=== PATIENT | female | born 1985 | race African-American/Black ===

== ENCOUNTER 2020-07-25 09:47 | Emergency (ER) | payer SELFPAY ==
--- NOTE | ~2020-07-25 | CT_ITS ---
EXAMINATION: CT cervical spine wo con DATE: 07/25/2020 12:32 INDICATION: Left neck and shoulder pain. TECHNIQUE: Computed tomography (CT) of the cervical spine was performed without intravenous contrast. Automated exposure control and iterative reconstruction technique were employed. The dose-length pro duct was 372.11 mGy-cm. COMPARISON: CT neck 04/14/2014 FINDINGS: There is kyphosis and 5 degrees dextrocurvature of cervical spine. Vertebral body heights a re normal. There is mildly decreased disc height at C4-C5. The following disc levels are specifically discussed: C2-C3: There is no uncovertebral joint osteoarthritis. There is mild left facet joint osteoarthritis. There is no neural foraminal stenosis. There is no central canal stenosis. C3-C4: There is no uncovertebral joint osteoarthritis. There is mild bilateral facet joint osteoarthr itis. There is no neural foraminal stenosis. There is no central canal stenosis. C4-C5: There is no uncovertebral joint osteoarthritis. There is no facet joint osteoarthritis. There is no neural foraminal stenosis. There is mild central canal stenosis. C5-C6: There is no uncovertebral joint osteoarthritis. There is no facet joint osteoarthritis. There is no neural foraminal stenosis. There is mild central canal stenosis. C6-C7: There is no uncovertebral joint osteoarthritis. There is no facet joint osteoarthritis. There is no neural foraminal stenosis. There is no central canal stenosis. C7-T1: There is no uncovertebral joint osteoarthritis. There is mild bilateral facet joint osteoarthr itis. There is no neural foraminal stenosis. There is no central canal stenosis. IMPRESSION: 1. Mild cervical spondylosis. Reviewed, dictated and finalized at location A.
[2020-07-25 11:01] VITALS: BP 124/77; PULSE 88; RESP 20; TEMP 36.4; O2SAT 98
[2020-07-25] MEDS: KETOROLAC (*BKC) 60 MG/2 ML VIAL IM (12:26)
--- NOTE | 2020-07-25 13:13 | ED.GENADULT ---
HPI - General Adult General Chief complaint: Extremity Injury, Upper Stated complaint: left arm injury Time Seen by Provider: 07/25/20 11:51 Source: patient Mode of arrival: ambulatory Limitations: no limitations History of Present Illness HPI narrative: Patient is a 35-year-old female who presents to emergency department for evaluation of left-sided neck pain radiating to the shoulder and into the arm has been present now for several weeks has seen chiropractor with no relief presents in no distress has been taken ibuprofen with minimal improvement notes that the pain in the neck is now improved but is more around the rotator cuff musculature at this time and is made worse with lifting the shoulder above the level of the shoulder Related Data Allergies Allergy/AdvReac Type Severity Reaction Status Date / Time No Known Allergies Allergy Verified 07/25/20 11:44 Review of Systems Review of Systems: All systems reviewed & are unremarkable except as noted in HPI and below PMFSH Social History Social History (Updated 07/25/20 @ 13:19 by Carlos Alberto Collazo PA-C) Smoking status: Current every day smoker Exam Narrative: Exam Narrative: GENERAL: Well-appearing, well-nourished, and in no acute distress. HEAD: Normocephalic, atraumatic. EYES: PERRLA and EOMI. ENT: Nares clear, no rhinorrhea or epistaxis. Mucous membranes moist. NECK: Supple. No adenopathy or masses. CHEST: Clear to auscultation. No respiratory distress. No wheezes rales or rhonchi HEART: Regular rate and rhythm. No murmur heard. Normal peripheral pulses. EXTREMITIES: Normal range of motion. No edema. Tenderness of the left paraspinal cervical musculature and rotator cuff musculature no deformities noted SKIN: Warm, dry, no rash. NEURO: No focal deficits. Alert and oriented x3. Neurovascularly intact. Capillary refill less than 2 seconds PSYCH: Normal mood and affect. Course Course Emergency Course: Patient in the room at this time aware of case findings treatment plan and diagnosis will follow with primary care and orthopedic surgery Vital Signs Vital signs: Vital Signs Temperature 97.6 F 07/25/20 11:01 Pulse Rate 88 07/25/20 11:01 Respiratory Rate 20 07/25/20 11:01 Blood Pressure 124/77 07/25/20 11:01 Pulse Oximetry 98 07/25/20 11:01 Temperature 97.6 F 07/25/20 11:01 Pulse Rate 88 07/25/20 11:01 Respiratory Rate 20 07/25/20 11:01 Blood Pressure 124/77 07/25/20 11:01 Pulse Oximetry 98 07/25/20 11:01 Medical Decision Making MDM Narrative Medical decision making narrative: Patients injury or pain is consistent with musculoskeletal etiology. No signs of neurological or vascular compromise on exam. Compartments and tisues are soft without signs of compartment syndrome. Pain is felt appropriate for further evaluation on an outpatient basis. Vital Signs Vital Signs: Vital Signs Temperature 97.6 F 07/25/20 11:01 Pulse Rate 88 07/25/20 11:01 Respiratory Rate 20 07/25/20 11:01 Blood Pressure 124/77 07/25/20 11:01 Pulse Oximetry 98 07/25/20 11:01 Temperature 97.6 F 07/25/20 11:01 Pulse Rate 88 07/25/20 11:01 Respiratory Rate 20 07/25/20 11:01 Blood Pressure 124/77 07/25/20 11:01 Pulse Oximetry 98 07/25/20 11:01 Discharge Plan Discharge Clinical Impression: Cervical radiculopathy Patient Disposition: Home, Self-Care Condition: Stable Instructions: Antibiotic Form, Cervical Radiculopathy (ED) Additional Instructions: Follow up with your primary care doctor in 5-7 days for re-evaluation. Go to ER for worsening pain, vision changes, nausea/vomiting, fever/chills, weakness, chest pain, shortness of breath, numbness/tingling, slurred speech, difficulty walking, change in mental status etc. or any other concerns. Take any prescribed medications as directed. Prescriptions: New naproxen [Naprosyn] 500 mg tablet 500 mg PO BID PRN (Reason: pain) Qty:
[2020-07-25 13:29] VITALS: BP 120/63; PULSE 66; RESP 17; O2SAT 100
== END 2020-07-25 13:34 | disposition home or self-care (01) ==
PROVIDERS: Emergency Provider Emergency Medicine
DX: M54.12 Radiculopathy, cervical region (principal); F17.200 Nicotine dependence, unspecified, uncomplicated
CPT/HCPCS: 72125; 96372; 99284; J1885

== ENCOUNTER 2023-06-29 02:09 | Emergency (ER) | payer BC, SELFPAY ==
[2023-06-29 02:15] VITALS: BP 142/79; PULSE 98; RESP 15; TEMP 36.3; O2SAT 100
[2023-06-29 02:37] LABS: Basophils Absolute Auto 0.1 K/mm3 (0.0-0.1); Basophils Percent Auto 1.1 % (0.2-1.2); Eosinophils Absolute Auto 0.1 K/mm3 (0-0.3); Eosinophils Percent Auto 1.1 % (0-4.4); Hematocrit 27.2 % (37.0-47.0); Hemoglobin 7.6 g/dL (12.0-15.0); Immature Granulocyte Absolute 0.03 K/mm3 (0.00-0.031); Immature Granulocyte Percent A 0.3 % (0-0.5); Lymphocytes Absolute Auto 4.47 K/mm3 (0.9-3.2); Lymphocytes Percent Auto 49.1 % (18.3-44.2); Mean Corpuscular HGB Conc 27.9 g/dl (32-36); Mean Corpuscular Hemoglobin 20.6 pg (26-34); Mean Corpuscular Volume 73.7 fl (80-100); Mean Platelet Volume 9.5 fl (7.4-10.4); Monocytes Absolute Auto 0.7 K/mm3 (0.1-0.6); Monocytes Percent Auto 7.7 % (2.6-8.5); Neutrophils Absolute Auto 3.7 K/mm3 (1.3-6.7); Neutrophils Percent Auto 40.7 % (45.5-73.1); Platelet Count Result 738 k/mm3 (150-375); Red Blood Count 3.69 M/mm3 (4.2-5.4); Red Cell Distribution Width 23.9 % (11.5-14.5); White Blood Count 9.1 K/mm3 (4.5-10.0)
[2023-06-29 02:51] LABS: D Dimer 1.28 ug/mL (<0.48)
--- NOTE | 2023-06-29 02:53 | ED.LOWEXIN ---
HPI - Extremity Injury (Lower) General Chief Complaint: Extremity Injury, Lower Stated Complaint: Left calf pain Time Seen by Provider: 06/29/23 02:16 History of Present Illness HPI Narrative: Patient presents to the emergency department from home. She had a long road trip lasting 48 hours in a car. She now has posterior left knee and lower extremity pain and swelling. Improved with elevation but worse with any ambulation. Denies chest pain and shortness of breath. Denies all other symptoms. Patient is very pleasant and in no distress. Left lower extremity is swollen on exam Related Data Allergies Allergy/AdvReac Type Severity Reaction Status Date / Time No Known Allergies Allergy Verified 06/29/23 02:20 Review of Systems Review of Systems: Review of systems negative except what is documented in the [facility] Social History Social History (Updated 07/25/20 @ 13:19 by Carlos Alberto Collazo, DEBRA) Smoking status: Current every day smoker Exam Narrative: GENERAL: Well-appearing, well-nourished, and in no acute distress. HEAD: Normocephalic, atraumatic. EYES: PERRLA and EOMI. ENT: Nares clear, no rhinorrhea or epistaxis. Mucous membranes moist. NECK: Supple. CHEST: Clear to auscultation. No respiratory distress. HEART: Regular rate and rhythm. ABDOMEN: Soft, nontender, nondistended. EXTREMITIES: Normal range of motion. Edema and tenderness right lower extremity knee and calf SKIN: Warm, dry, no rash. NEURO: No focal deficits. Alert and oriented x3. PSYCH: Normal mood and affect. Course Course Emergency Course: Differential diagnoses include but not limited to Bacon's cyst, DVT, superficial thrombi this D-dimer pending Vital Signs Vital signs: Vital Signs Temperature 36.3 C L 06/29/23 02:15 Pulse Rate 98 06/29/23 02:15 Respiratory Rate 15 06/29/23 02:15 Blood Pressure 142/79 H 06/29/23 02:15 Pulse Oximetry 100 06/29/23 02:15 Oxygen Delivery Room Air 06/29/23 02:15 Temperature 36.3 C L 06/29/23 02:15 Pulse Rate 71 06/29/23 03:30 Respiratory Rate 16 06/29/23 03:30 Blood Pressure 128/91 H 06/29/23 03:30 Pulse Oximetry 100 06/29/23 03:30 Oxygen Delivery Room Air 06/29/23 02:15 MDM - Extremity Injury (Lower) MDM Narrative Medical decision making narrative: D-dimer ordered and elevated. Lovenox given. Will DC with outpatient duplex ordered Lab Data 06/29/23 02:32 06/29/23 02:32 Labs: Lab Results 06/29/23 Range/Units 02:32 WBC 9.1 (4.5-10.0) K/mm3 RBC 3.69 L (4.2-5.4) M/mm3 Hgb 7.6 L (12.0-15.0) g/dL Hct 27.2 L (37.0-47.0) % MCV 73.7 L (80-100) fl MCH 20.6 L (26-34) pg MCHC 27.9 L (32-36) g/dl RDW 23.9 H (11.5-14.5) % Plt Count 738 H (150-375) k/mm3 MPV 9.5 (7.4-10.4) fl Immature Gran % (Auto) 0.3 (0-0.5) % Neut % (Auto) 40.7 L (45.5-73.1) % Lymph % (Auto) 49.1 H (18.3-44.2) % [place] % (Auto) 7.7 (2.6-8.5) % Eos % (Auto) 1.1 (0-4.4) % Baso % (Auto) 1.1 (0.2-1.2) % Lymph # (Auto) 4.47 H (0.9-3.2) K/mm3 [place] # (Auto) 0.7 H (0.1-0.6) K/mm3 Eos # (Auto) 0.1 (0-0.3) K/mm3 Baso # (Auto) 0.1 (0.0-0.1) K/mm3 Abs Immat Gran (auto) 0.03 (0.00-0.031) K/mm3 Absolute Neuts (auto) 3.7 (1.3-6.7) K/mm3 Absolute Nucleated RBC 0.0 (0.0-0.012) K/mm3 Nucleated RBC % 0.0 (0.0-0.2) % Platelet Estimate Increased (Adequate) Hypochromasia 2+ (NORMAL) Anisocytosis 2+ (NORMAL) Microcytosis 1+ (NORMAL) Schistocytes None seen (NORMAL) D-Dimer 1.28 H (<0.48) ug/mL Sodium 138 (137-145) mmol/L Potassium 3.7 (3.4-5.0) mmol/L Chloride 109 H (98-107) mmol/L Carbon Dioxide 22 (22-30) mmol/L Anion Gap 7 L (8-16) mmol/L BUN 11 (7-17) mg/dL Creatinine 0.70 (0.7-1.0) mg/dL Estim Creat Clear Calc 99 ml/min Estimated GFR > 60 (59 - ) Glucose 101 (65-110) mg/dL Calcium 8.6 (8.4-10.2) mg/dL Total Bilirubin 0.4 (0.2-1
[2023-06-29 02:55] LABS: Alanine Aminotransferase 17 U/L (6-35); Albumin Level 3.9 g/dL (3.5-5.1); Alkaline Phosphatase 72 U/L (38-126); Anion Gap 7 mmol/L (8-16); Anisocytosis 2+ (NORMAL); Aspartate Amino Transferase 30 U/L (14-36); Bilirubin,Total 0.4 mg/dL (0.2-1.3); Blood Urea Nitrogen 11 mg/dL (7-17); Calcium 8.6 mg/dL (8.4-10.2); Carbon Dioxide 22 mmol/L (22-30); Chloride 109 mmol/L (98-107); Estimated CRCL calculation 99 ml/min; Estimated Glomerular Filt Rate > 60; Glucose 101 mg/dL (65-110); Hypochromasia 2+ (NORMAL); Microcytosis 1+ (NORMAL); Platelet Estimate Increased (Adequate); Potassium 3.7 mmol/L (3.4-5.0); Sodium 138 mmol/L (137-145)
[2023-06-29 02:56] LABS: Schistocytes None Seen (NORMAL)
[2023-06-29 03:09] VITALS: BP 136/89; PULSE 81; RESP 17; O2SAT 99
[2023-06-29 03:15] VITALS: BP 133/89; PULSE 79; RESP 18; O2SAT 100
[2023-06-29] MEDS: ENOXAPARIN 100 MG/ML SYRINGE 85 MG SUB-Q (03:29)
[2023-06-29 03:30] VITALS: BP 128/91; PULSE 71; RESP 16; O2SAT 100
== END 2023-06-29 04:40 | disposition home or self-care (01) ==
PROVIDERS: Emergency Provider Emergency Medicine
DX: M79.89 Other specified soft tissue disorders (principal); R79.1 Abnormal coagulation profile; F17.200 Nicotine dependence, unspecified, uncomplicated
CPT/HCPCS: 36415; 80053; 85025; 85380; 93971; 96372; 99283; J1650

== ENCOUNTER 2023-06-29 08:26 | Outpatient (CLI) | payer BC, SELFPAY ==
--- NOTE | ~2023-06-29 | US_ITS ---
EXAMINATION: US venous doppler [facility] DATE: 06/29/2023 09:16 INDICATION: Left lower limb swelling TECHNIQUE: Grayscale ultrasound images without and with compression and Doppler ultrasound images of the left lower extremity veins were obtained. COMPARISON: None. FINDINGS: The visualized portions of left common femoral vein, profunda (deep) femoral vein, femoral vein, popl iteal vein, peroneal veins, posterior tibial veins and greater saphenous vein outflow are patent. IMPRESSION: 1. No deep venous thrombosis in the left lower limb. Reviewed, dictated and finalized at location A.
== END 2023-06-29 08:27 | disposition home or self-care (01) ==
PROVIDERS: Visit Provider Emergency Medicine
DX: M79.89 Other specified soft tissue disorders (principal)
CPT/HCPCS: 93971